=== PATIENT | female | born 1985 | race Caucasian/White ===

== ENCOUNTER 2018-06-15 16:02 | Emergency (ER) | payer OTHER ==
[2018-06-15 16:25] VITALS: BP 180/110; PULSE 88; O2SAT 99
[2018-06-15] MEDS ORDERED: TORAdol 30 mg Injection IM ONE (16:40)
[2018-06-15] MEDS ORDERED: TORAdol 30 mg Injection ONE (16:43)
--- NOTE | 2018-06-15 16:45 | ERPHSYRPT ---
- History of Present Illness Time Seen by Provider: 06/15/18 16:36 Source: patient Exam Limitations: no limitations Patient Subjective Stated Complaint: staes her car door closed on her hand after the wind blew it shut pain in left hand Triage Nursing Assessment: alert and oriented.. pain in left hand after car door closed on it prior to arrival. + swelling noted. + radial pulse present. pain with movement of fingers Physician History: This is a 33-year-old white female she arrives with complaint of pain in her left hand symptoms since 3:35 this afternoon. According to the patient, the wind blew her car door and it struck her on the left hand. Patient is complaining of pain in her left hand. Past medical history includes abnormal uterine bleeding, anxiety, bipolar depression, mitral valve prolapse Past surgical history includes hysterectomy, tubal ligation Occurred: just prior to arrival (15:45) Extremities Pain Location: hand: left Modifying Factors: Improves With: nothing Associated Symptoms: none Allergies/Adverse Reactions: butorphanol tartrate [From Stadol] Allergy (Unknown, Verified 12/05/15 21:23) Hives tramadol Allergy (Unknown, Verified 12/05/15 21:23) Itching Home Medications: Acyclovir 400 mg PO DAILY 11/05/13 [History] Topiramate [Topamax] 200 mg PO DAILY 11/05/13 [History] Vilazodone Hydrochloride [Viibryd] 40 mg PO DAILY 08/26/15 [History] Nadolol 20 mg [Corgard 20 MG] 20 mg PO BID 12/05/15 [History] Hx Tetanus, Diphtheria Vaccination/Date Given: No Hx Influenza Vaccination/Date Given: No Hx Pneumococcal Vaccination/Date Given: No Immunizations Up to Date: (unknown) - Review of Systems Constitutional: No Fever, No Chills Eyes: No Symptoms Ears, Nose, & Throat: No Symptoms Respiratory: No Cough, No Dyspnea Cardiac: No Chest Pain, No Edema, No Syncope Abdominal/Gastrointestinal: No Abdominal Pain, No Nausea, No Vomiting, No Diarrhea Genitourinary Symptoms: No Dysuria Musculoskeletal: Other (left hand pain) Skin: No Rash Neurological: No Dizziness, No Focal Weakness, No Sensory Changes Psychological: No Symptoms Endocrine: No Symptoms All Other Systems: Reviewed and Negative - Past Medical History Pertinent Past Medical History: Yes Neurological History: Migraines ENT History: No Pertinent History Cardiac History: Other Respiratory History: No Pertinent History Endocrine Medical History: No Pertinent History Musculoskeletal History: No Pertinent History GI Medical History: Other History: No Pertinent History Psycho-Social History: Anxiety, Bipolar, Depression Female Reproductive Disorders: Abnormal Uterine Bleeding Other Medical History: mitral valve prolaspe - Past Surgical History Past Surgical History: Yes Neuro Surgical History: No Pertinent History Cardiac: No Pertinent History Respiratory: No Pertinent History Gastrointestinal: No Pertinent History Genitourinary: No Pertinent History Musculoskeletal: No Pertinent History Female Surgical History: Hysterectomy, Tubal Ligation - Social History Smoking Status: Current every day smoker How long have you smoked: 6 Exposure to second hand smoke: Yes Drug Use: none Patient Lives Alone: No - Female History Hx Now: No - Nursing Vital Signs Nursing Vital Signs: Initial Vital Signs Temperature 98 F 06/15/18 16:16 Pulse Rate 88 06/15/18 16:16 Respiratory Rate 18 06/15/18 16:16 Blood Pressure 180/110 06/15/18 16:16 O2 Sat by Pulse Oximetry 99 06/15/18 16:16 Pain Scale Pain Intensity 7 - Physical Exam General Appearance: mild distress Eyes, Ears, Nose, Throat Exam: moist mucous membranes Neck Exam: non-tender, supple Cardiovascular/Respiratory Exam: chest non-tender, normal breath sounds, regular rate/rhythm, no respiratory distress Abdominal Exam: non-tender, No guarding Back Exam: normal inspection, No vertebral tenderness Shoulder Exam: normal inspection, non-tender, no evidence of injury, normal ROM Elbow/Forearm Exam: normal inspection, non-tender, no evidence of injury, normal ROM Wrist Exam: normal inspection, non-tender, no evidence of injury Hand Exam: No normal inspection (left hand tender with palpation, decreased range of motion secondary to pain, good capillary refill left fingers, sensation intact left fingers) Neuro/Tendon Exam: normal sensation, normal motor functions Mental Status Exam: alert, oriented x 3, cooperative Skin Exam: normal color, warm, dry SpO2 Interpretation: normal (99%), No borderline oxygenation SpO2: 99 Oxygen Delivery: Room Air - Course Nursing assessment & vital signs reviewed: Yes - Radiology Exams Left Hand X-ray Interpretation: Interpreted by me, Negative, No Fracture, No Subluxation Ordered Tests: Active Orders 24 hr Category Date Time Status Splint STAT Care 06/15/18 17:10 Active HAND (MINIMUM 3 VIEWS) Stat Exams 06/15/18 16:40 Taken Medication Summary Discontinued Medications Generic Name Dose Route Start Last Admin Trade Name Damian PRN Reason Stop Dose Admin Ketorolac Tromethamine 60 mg 06/15/18 16:40 06/15/18 16:44 Toradol 30 Mg Injection IM 06/15/18 16:41 60 mg STAT ONE Administration Ketorolac Tromethamine Confirm 06/15/18 16:43 Toradol 30 Mg Injection Administered 06/15/18 16:44 Dose 60 mg .ROUTE .STK-MED ONE - Progress Progress: improved Progress Note: 06/15/18 17:11 This is a 33-year-old white female who arrives with complaint of pain in her left dorsal hand symptoms since the wind blew her car door closed on her hand at approximately 3:30 this afternoon. Patient has pain with movement of her left hand pain with movement of her left fingers located overlying her left dorsal hand. She has good capillary refill to all her fingers sensation intact to all of her fingers. I do not see obvious bruising or abrasion. Patient's x-ray of her left hand is negative. Patient received Toradol 60 mg IM. She will be placed in the left wrist splint to stabilize her left hand she is to return home Tylenol every 4 hours or Motrin every 6 hours as needed for pain. Cold packs to area 24-48 hours. - Departure Time of Disposition: 17:13 Departure Disposition: Home Clinical Impression: Contusion of left hand Qualifiers: Encounter type: initial encounter Qualified Code(s): S60.222A - Contusion of left hand, initial encounter Condition: Fair Critical Care Time: No Referrals: MANE COFFMAN MD [Primary Care Provider] - Instructions: Contusion (DC), Hand Pain (DC) Additional Instructions: Return home. Ice and elevate your left hand 24-48 hours. Advil every 6 hours with food or Tylenol every 4 hours as needed for pain. Follow-up with your family doctor if symptoms are worse, no better in 48 hours, or persist longer than one week. Return for acute distress or for severe symptoms. Your x-rays have been preliminarily read, they will be reread tomorrow. You will be contacted if any discrepancies are noted.
--- NOTE | 2018-06-15 22:35 | XRAY ---
Indication: Pain following car door injury. Comparison: None 3 views of the left hand obtained. No bony, articular, or soft tissue abnormalities.
== END 2018-06-15 17:25 | disposition home or self-care (01) ==
LOC: ED 16:02
DX: S60.222A Contusion of left hand, initial encounter (principal); W23.0XXA Caught, crushed, jammed, or pinched between moving objects, initial encounter; Z79.899 Other long term (current) drug therapy
CPT/HCPCS: 73130; 96372; 99283; J1885; L3908

== ENCOUNTER 2019-08-15 06:15 | Emergency (ER) | payer OTHER ==
--- NOTE | 2019-08-15 06:49 | ERPHSYRPT ---
- History of Present Illness Time Seen by Provider: 08/15/19 06:56 Source: patient, family, old records Exam Limitations: no limitations Patient Subjective Stated Complaint: pt arrived in er complaining of headache x24 hours. pt is sensitive to light and rates pain as 10/10 at this time. Triage Nursing Assessment: pt is alert and oriented and able to answer all questions. pt is holding head and states pain is 10/10; pt states she has a history of migrianes and taked lamictall daily Physician History: [PT IS A 34 Y/O WOMAN C/O "I HAVE A MIGRAINE." PT REPORTS AMOS THROBBING 10/10 DISCOMFORT UNRESPONSIVE TO LAMICTAL AND IBUPROFEN. + NAUSEA + PHOTOPHOBIA NO CP/ SOB/V/FEVER/CHILLS/DYSURIA/STIFF NECK/VISUAL CHANGES/DYSARTHRIA/AMS/UNILATERAL WEAKNESS/DYSURIA/HEMATURIA/VAG BLEED OR DC. REPORTS SIMILAR TO PRIOR MIGRAINES BUT MORE INTENSE. NO FHX CEREBRAL ANEURYSM. NO OTALGIA/DENTALGIA/SINUS TENDERNESS COUGH X 1 WEEK NO SICK CONTACTS NO SORE THROAT PMHX MIGRAINES, DEPRESSION PSHX NAOMI MEDS REVIEWED ALL LIST REVIEWED +TOB +ETOH OCC DENIES ILLICITS FHX NEG CEREBRAL ANEURYSM Allergies/Adverse Reactions: butorphanol tartrate [From Stadol] Allergy (Unknown, Verified 12/05/15 21:23) Hives tramadol Allergy (Unknown, Verified 12/05/15 21:23) Itching acetaminophen [From [place]] Allergy (Verified 08/15/19 06:27) hydrocodone [From [place]] Allergy (Verified 08/15/19 06:27) Home Medications: Bupropion HCl [Wellbutrin Xl] 300 mg PO DAILY 08/15/19 [History] lamoTRIgine [Lamictal] 100 mg PO DAILY 08/15/19 [History] Hx Tetanus, Diphtheria Vaccination/Date Given: No Hx Influenza Vaccination/Date Given: No Hx Pneumococcal Vaccination/Date Given: No - Review of Systems Constitutional: No Symptoms, No Fever, No Chills, No Fatigue, No Lethargy, No Malaise, No Night Sweats, No Weakness, No Weight Loss Eyes: No Symptoms, No Discharge, No Eye Pain, No Eye Redness, No Itchy, No Photophobia, No Tearing, No Vision Changes, No Double Vision, No Foreign Body Sensation Ears, Nose, & Throat: No Symptoms, No Ear Pain, No Ear Discharge, No Hearing Changes, No Tinnitus, No Nose Congestion, No Nose Discharge, No Epistaxis, No Mouth Pain, No Mouth Swelling, No Throat Pain, No Throat Swelling, No Hoarse, No Painful Swallowing, No Stridor Respiratory: No Symptoms, No Cough, No Cyanosis, No Dyspnea, No Dyspnea on Exertion (ONEAL), No Stridor, No Wheezing Cardiac: No Symptoms, No Chest Pain, No Edema, No Palpitations, No Syncope, No Orthopnea Abdominal/Gastrointestinal: No Symptoms, Nausea, No Abdominal Pain, No Vomiting , No Diarrhea, No Constipation, No Hematemesis, No Hematochezia, No Melena, No Dysphagia, No Appetite Changes Genitourinary Symptoms: No Symptoms, No Dysuria, No Frequency, No Hematuria, No Hesitancy, No Incontinence, No Urgency, No Urinary Retention, No Flank Pain, No Menorrhagia, No , No Vaginal Bleeding, No Vaginal Discharge Musculoskeletal: No Symptoms, No Arthralgias, No Back Pain, No Neck Pain, No Deformity, No Fall, No Injury, No Joint Redness, No Joint Pain, No Joint Swelling, No Myalgias Skin: No Symptoms, No Cellulitis, No Decubiti, No Induration, No Pruritis, No Rash, No Skin Lesions, No Dryness Neurological: No Symptoms, Headache, No Dizziness, No Focal Weakness, No Gait Changes, No Irritability, No Lethargy, No Paralysis, No Parasthesia, No Seizure , No Sensory Changes, No Speech Changes, No Tics, No Tremors, No Vertigo Psychological: No Symptoms, No Alcohol Abuse, No Drug Abuse, No Anxiety, No Depression, No Suicidal Ideations, No Homicidal Ideations, No Emotional Lability , No Hallucinations, No Memory Loss, No Mood Changes Endocrine: No Symptoms, No Polyuria, No Polydipsia, No Hair Changes, No Cold Intolerance, No Excessive Sweating, No Goiter Hematologic/Lymphatic: No Symptoms, No Anemia, No Blood Clots, No Easy Bleeding , No Gum Bleeding, No Easy Bruising, No Adenopathy Immunological/Allergic: No Symptoms All Other Systems: Reviewed and Negative - Past Medical History Pertinent Past Medical History: Yes Neurological History: Migraines ENT History: No Pertinent History Cardiac History: Other Respiratory History: No Pertinent History Endocrine Medical History: No Pertinent History Musculoskeletal History: No Pertinent History GI Medical History: Other History: No Pertinent History Psycho-Social History: Depression Female Reproductive Disorders: Abnormal Uterine Bleeding Other Medical History: mvp, migraines, depression - Past Surgical History Past Surgical History: Yes Neuro Surgical History: No Pertinent History Cardiac: No Pertinent History Respiratory: No Pertinent History Gastrointestinal: No Pertinent History Genitourinary: No Pertinent History Musculoskeletal: No Pertinent History Female Surgical History: Hysterectomy, Tubal Ligation - Social History Smoking Status: Current every day smoker How long have you smoked: 9 Exposure to second hand smoke: Yes Drug Use: none Patient Lives Alone: No - Female History Hx Now: No - Nursing Vital Signs Nursing Vital Signs: Initial Vital Signs Temperature 97.7 F 08/15/19 06:32 Pulse Rate 83 08/15/19 06:32 Respiratory Rate 16 08/15/19 06:32 Blood Pressure 175/126 08/15/19 06:32 O2 Sat by Pulse Oximetry 98 08/15/19 06:32 Pain Scale Pain Intensity 8 - Physical Exam General Appearance: no apparent distress, mild distress, alert, other (NO AMOS TEMPORAL TTP ) Eye Exam: PERRL/EOMI, eyes nml inspection, other (fundi normal amos), No scleral icterus, No pale conjunctivae, No photophobia, No EOM palsy/anisocoria Ears, Nose, Throat Exam: normal ENT inspection, TMs normal, pharynx normal, TM abnormal (L), other (uvula midline, floor of mouth soft), No moist mucous membranes, No dry mucous membranes, No TM abnormal (R), No pharyngeal erythema, No tonsillar exudate Neck Exam: normal inspection, non-tender, supple, full range of motion, No meningismus, No mass, No Brudzinski, No Kernig's, No carotid bruit, No JVD, No limited range of motion, No lymphadenopathy, No midline tenderness, No thyromegaly Respiratory Exam: normal breath sounds, lungs clear, airway intact, No chest tenderness, No respiratory distress, No diminished breath sounds, No accessory muscle use, No prolonged expirations, No crackles/rales, No rhonchi, No wheezing , No stridor, No pleural rub Cardiovascular Exam: regular rate/rhythm, normal heart sounds, normal peripheral pulses, capillary refill <2 sec, No murmur, No friction rub, No gallop, No tachycardia, No bradycardia, No irregular, No capillary refill 2-3 sec, No capillary refill >3 sec, No edema, No pulse deficit Gastrointestinal/Abdomen Exam: soft, normal bowel sounds, No tenderness, No distention, No mass, No guarding, No ecchymosis, No pulsatile mass, No rebound, No hernia, No hepatomegaly, No organomegaly, No splenomegaly, No bruit Pelvic Exam: normal external exam Rectal Exam: deferred Back Exam: normal inspection, normal range of motion, other (neg slr amos, no sacral anesthesia, dtr 2/4 amos patella), No CVA tenderness, No vertebral tenderness, No rash, No decreased range of motion, No muscle spasm, No point tenderness Extremity Exam: normal inspection, normal range of motion, pelvis stable, No amputations, No contusions, No calf tenderness, No deformities, No lacerations, No parasthesia, No paralysis, No inflammation, No joint swelling, No limited range of motion, No pedal edema, No swelling, No tenderness Neurologic Exam: alert, oriented x 3, cooperative, booth manager II-XII nml as tested, normal mood/affect, nml cerebellar function, nml station & gait, sensation nml, No motor deficits, No sensory deficit, No disoriented, No confusion, No agitation, No uncooperative, No intoxicated appearance, No depressed mood/affect , No motor weakness, No facial droop, No slurred speech, No aphasia, No dysarthria, No abnormal gait, No abnormal cerebellar tests, No abnormal booth manager II- XII, No EOM palsy Skin Exam: normal color, warm, dry, No rash, No petechiae, No jaundice, No abrasion, No cyanosis, No diaphoresis, No decubitus, No embolic lesions, No ecchymosis, No jaundice, No laceration, No mottled, No pale Lymphatic Exam: No adenopathy SpO2 Interpretation: normal SpO2: 98 O2 Delivery: Room Air - Course Nursing assessment & vital signs reviewed: No Ordered Tests: Active Orders 24 hr Category Date Time Status IV Insertion STAT Care 08/15/19 06:52 Active Oxygen-ED Only Nasal Cannula 2 lpm Care 08/15/19 06:52 Active CBC W DIFF Stat Lab 08/15/19 07:00 Completed CMP Stat Lab 08/15/19 07:00 Completed ESR [Erythrocyte Sedimentation Rate] Stat Lab 08/15/19 06:58 Completed HCG QUALITATIVE,SERUM Stat Lab 08/15/19 07:00 Completed UA W/RFX UR CULTURE Stat Lab 08/15/19 08:20 Completed Medication Summary Discontinued Medications Generic Name Dose Route Start Last Admin Trade Name Candelarioq PRN Reason Stop Dose Admin Dexamethasone Sodium Phosphate 10 mg 08/15/19 06:55 08/15/19 07:39 Decadron 10mg Inj. IV 08/15/19 06:56 10 mg STAT ONE Administration Dexamethasone Sodium Phosphate Confirm 08/15/19 07:36 Decadron 10mg Inj. Administered 08/15/19 07:37 Dose 10 mg .ROUTE .STK-MED ONE Sodium Chloride 1,000 mls @ 999 mls/hr 08/15/19 06:52 08/15/19 07:40 Sodium Chloride 0.9% 1000 Ml IV 08/15/19 07:52 999 mls/hr .Q1H1M STA Administration Metoclopramide HCl 10 mg/ 1,000 mls @ 999 mls/hr 08/15/19 06:56 08/15/19 07: 45 Sodium Chloride IV 08/15/19 07:56 999 mls/hr .Q1H1M STA 999 mls/hr Administration Sodium Chloride Confirm 08/15/19 07:36 Sodium Chloride 0.9% 1000 Ml Administered 08/15/19 07:37 Dose 1,000 mls @ ud .ROUTE .STK-MED ONE Ketorolac Tromethamine 30 mg 08/15/19 06:52 08/15/19 07:39 Toradol 30 Mg Injection IV 08/15/19 06:53 30 mg STAT ONE Administration Ketorolac Tromethamine Confirm 08/15/19 07:35 Toradol 30 Mg Injection Administered 08/15/19 07:36 Dose 30 mg .ROUTE .STK-MED ONE Lab/Rad Data: Laboratory Result Diagrams 08/15/19 07:00 08/15/19 07:00 Laboratory Results 08/15/19 08/15/19 08/15/19 Range/Units 08:20 07:00 07:00 WBC (4.0-10.5) K/mm3 RBC (4.1-5.4) M/mm3 Hgb (12.0-16.0) gm/dl Hct (35-47) % MCV (78-100) fl MCH (26-32) pg MCHC (32-36) g/dl RDW (11.5-14.0) % Plt Count (150-450) K/mm3 MPV (6-9.5) fl Gran % (36.0-66.0) % Eos # (Auto) (0-0.5) Absolute Lymphs (auto) (1.0-4.6) Absolute Monos (auto) (0.0-1.3) Lymphocytes % (24.0-44.0) % Monocytes % (0.0-12.0) % Eosinophils % (0.00-5.0) % Basophils % (0.0-0.4) % Absolute Granulocytes (1.4-6.9) Basophils # (0-0.4) ESR (0-20) mm/hr Sodium 143 (137-145) mmol/L Potassium 4.1 (3.5-5.1) mmol/L Chloride 105 (98-107) mmol/L Carbon Dioxide 30 (22-30) mmol/L Anion Gap 12.2 (5-15) MEQ/L BUN 12 (7-17) mg/dL Creatinine 0.74 (0.52-1.04) mg/dL Estimated GFR > 60.0 ML/MIN Glucose 90 (74-106) mg/dL Calcium 9.9 (8.4-10.2) mg/dL Total Bilirubin 0.50 (0.2-1.3) mg/dL AST 24 (14-36) U/L ALT 18 (0-35) U/L Alkaline Phosphatase 72 (38-126) U/L Serum Total Protein 6.8 (6.3-8.2) g/dL Albumin 4.3 (3.5-5.0) g/dL Serum , Qual NEGATIVE (Negative) Urine Color YELLOW (YELLOW) Urine Appearance CLEAR (CLEAR) Urine pH 7.0 (5-6) Ur Specific [place] 1.009 (1.005-1.025) Urine Protein NEGATIVE (Negative) Urine Ketones NEGATIVE (NEGATIVE) Urine Blood NEGATIVE (0-5) Gui/ul Urine Nitrite NEGATIVE (NEGATIVE) Urine Bilirubin NEGATIVE (NEGATIVE) Urine Urobilinogen NEGATIVE (0-1) mg/dL Ur Leukocyte Esterase NEGATIVE (NEGATIVE) Urine WBC (Auto) NONE (0-5) /HPF Urine RBC (Auto) NONE (0-2) /HPF U Epithel Cells (Auto) NONE (FEW) /HPF Urine Bacteria (Auto) NONE (NEGATIVE) /HPF Urine Culture Reflexed NO (NO) Urine Glucose NEGATIVE (NEGATIVE) mg/dL 08/15/19 08/15/19 Range/Units 07:00 06:58 WBC 6.0 (4.0-10.5) K/mm3 RBC 4.50 (4.1-5.4) M/mm3 Hgb 15.0 (12.0-16.0) gm/dl Hct 42.6 (35-47) % MCV 94.7 (78-100) fl MCH 33.3 H (26-32) pg MCHC 35.2 (32-36) g/dl RDW 11.7 (11.5-14.0) % Plt Count 199 (150-450) K/mm3 MPV 10.3 H (6-9.5) fl Gran % 39.8 (36.0-66.0) % Eos # (Auto) 0.19 (0-0.5) Absolute Lymphs (auto) 2.90 (1.0-4.6) Absolute Monos (auto) 0.51 (0.0-1.3) Lymphocytes % 48.3 H (24.0-44.0) % Monocytes % 8.5 (0.0-12.0) % Eosinophils % 3.2 (0.00-5.0) % Basophils % 0.2 (0.0-0.4) % Absolute Granulocytes 2.40 (1.4-6.9) Basophils # 0.01 (0-0.4) ESR 3 (0-20) mm/hr Sodium (137-145) mmol/L Potassium (3.5-5.1) mmol/L Chloride (98-107) mmol/L Carbon Dioxide (22-30) mmol/L Anion Gap (5-15) MEQ/L BUN (7-17) mg/dL Creatinine (0.52-1.04) mg/dL Estimated GFR ML/MIN Glucose (74-106) mg/dL Calcium (8.4-10.2) mg/dL Total Bilirubin (0.2-1.3) mg/dL AST (14-36) U/L ALT (0-35) U/L Alkaline Phosphatase (38-126) U/L Serum Total Protein (6.3-8.2) g/dL Albumin (3.5-5.0) g/dL Serum , Qual (Negative) Urine Color (YELLOW) Urine Appearance (CLEAR) Urine pH (5-6) Ur Specific [place] (1.005-1.025) Urine Protein (Negative) Urine Ketones (NEGATIVE) Urine Blood (0-5) Gui/ul Urine Nitrite (NEGATIVE) Urine Bilirubin (NEGATIVE) Urine Urobilinogen (0-1) mg/dL Ur Leukocyte Esterase (NEGATIVE) Urine WBC (Auto) (0-5) /HPF Urine RBC (Auto) (0-2) /HPF U Epithel Cells (Auto) (FEW) /HPF Urine Bacteria (Auto) (NEGATIVE) /HPF Urine Culture Reflexed (NO) Urine Glucose (NEGATIVE) mg/dL - Progress Progress: improved Progress Note: 08/15/19 08:12 [facility] RESOLVED AWAIT UA AND ESR FINDINGS REVIEWED WITH PT PLAN DC WITH FUP ALL QUESTIONS ANSWERED TO PT SATISFACTION 08/15/19 08:33 UA NEG WILL DC WITH FUP Counseled pt/family regarding: drug and/or alcohol abuse, lab results, diagnosis , need for follow-up, rad results, smoking cessation - Departure Departure Disposition: Home Clinical Impression: Migraine Condition: Good Critical Care Time: No Referrals: MANE COFFMAN MD [Primary Care Provider] - Instructions: Headache, Adult (DC) Additional Instructions: TO ER IF UNILATERAL WEAKNESS, VISUAL CHANGES, SPEECH CHANGES, ALTERATION IN MENTAL STATUS, FEVER OVER 102, INTRACTABLE VOMITING MOTRIN FOR DISCOMFORT DRINK PLENTY OF FLUIDS YOU MAY RETURN TO WORK PLEASE FOLLOW UP WITH YOUR DOCTOR IN 2-3 DAYS FOR RE-EVALUATION AND DEFINITIVE CARE
[2019-08-15] MEDS ORDERED: Sodium Chloride 0.9% 1000 ML 1,000 ML IV STA (06:52)
[2019-08-15] MEDS ORDERED: TORAdol 30 mg Injection IV ONE (06:52)
[2019-08-15] MEDS ORDERED: DECADRON 10MG INJ. IV ONE (06:55)
[2019-08-15] MEDS ORDERED: REGLAN IV STA (06:56)
[2019-08-15] MEDS ORDERED: SODIUM CHLORIDE 0.9% IV STA (06:56)
[2019-08-15 07:15] LABS: BASOPHIL % 0.2 % (0.0-0.4); Basophil (Absolute #) 0.01 (0-0.4); Eosinophil % 3.2 % (0.00-5.0); Eosinophil (Absolute #) 0.19 (0-0.5); Hematocrit 42.6 % (35-47); Lymphocytes % 48.3 % (24.0-44.0); Mean Cell Volume 94.7 fl (78-100); Mean Corpuscular Hemoglobin 33.3 pg (26-32); Mean Corpuscular Hgb Concent. 35.2 g/dl (32-36); Mean Platelet Volume 10.3 fl (6-9.5); Monocyte (Absolute #) 0.51 (0.0-1.3); Monocytes % 8.5 % (0.0-12.0); Neutrophil % 39.8 % (36.0-66.0); Platelet Count 199 K/mm3 (150-450); Red Cell Distribution Width 11.7 % (11.5-14.0)
[2019-08-15] MEDS ORDERED: TORAdol 30 mg Injection ONE (07:35)
[2019-08-15] MEDS ORDERED: Sodium Chloride 0.9% 1000 ML 1,000 ML ONE (07:36)
[2019-08-15] MEDS ORDERED: DECADRON 10MG INJ. ONE (07:36)
[2019-08-15 07:53] LABS: ALBUMIN 4.3 g/dL (3.5-5.0); ALKALINE PHOSPHATASE 72 U/L (38-126); ANION GAP 12.2 MEQ/L (5-15); BLOOD UREA NITROGEN 12 mg/dL (7-17); CHLORIDE 105 mmol/L (98-107); Calcium 9.9 mg/dL (8.4-10.2); Carbon Dioxide 30 mmol/L (22-30); Creatinine 1 0.74 mg/dL (0.52-1.04); Glucose 90 mg/dL (74-106); Potassium 4.1 mmol/L (3.5-5.1); SGOT/AST 24 U/L (14-36); SGPT/ALT 18 U/L (0-35); SODIUM 143 mmol/L (137-145); Total Protein 6.8 g/dL (6.3-8.2)
[2019-08-15 08:27] LABS: Appearance CLEAR (CLEAR); Bilirubin NEGATIVE (NEGATIVE); Blood NEGATIVE Ery/ul (0-5); Glucose NEGATIVE (NEGATIVE); Ketones NEGATIVE (NEGATIVE); Leukocyte Esterase NEGATIVE (NEGATIVE); Nitrite NEGATIVE (NEGATIVE); Protein,Urine Dip NEGATIVE (Negative); Specific Gravity 1.009 (1.005-1.025); Urobilinogen NEGATIVE mg/dL (0-1)
[2019-08-15 08:52] VITALS: BP 122/84; PULSE 68; O2SAT 100
== END 2019-08-15 08:56 | disposition home or self-care (01) ==
LOC: ED 06:15
DX: G43.909 Migraine, unspecified, not intractable, without status migrainosus (principal)
CPT/HCPCS: 36000; 36415; 80053; 81001; 81025; 85025; 85652; 96360; 96365; 96374; 96375; 99284; J1100; J1885

== ENCOUNTER 2024-06-05 15:35 | Emergency (ER) | payer BC, OTHER ==
[2024-06-05 15:56] VITALS: TEMP 97
--- NOTE | 2024-06-05 16:05 | ERPHSYRPT ---
- History of Present Illness Time Seen by Provider: 06/05/24 16:05 Source: patient Exam Limitations: no limitations Patient Subjective Stated Complaint: pt here for headache for 3 days now with lips numb and a sound in ears. she had tyenol and zofran yesterday. Triage Nursing Assessment: pt sent from clinic alert, oriented, texting on phone, resp easy. skin w/d/p. moves all ext well, no edema noted Physician History: This is a 39-year-old white female patient of Dr. Small who presents by private vehicle secondary to migraine headache is been present for 3 days despite the use of Toradol injectable. She took Tylenol and Zofran yesterday without much benefit. Patient has a history of migraine headaches and primarily it is the left side of her head which she states is the location of her pain. She states that it aches and throbs. She denies visual changes. Patient went to the outpatient clinic to be evaluated. Because of the patient's very high blood pressure, patient was sent to the emergency department. Patient does not take any medications for high blood pressure. Patient also had symptoms of lip numbness and sounds in her ears. Her systolic blood pressure here in the emergency department is initially 190s. Patient has a history of chronic migraine headaches anxiety/depression. She did not suffer any acute trauma to her head. Timing/Duration: day(s) (3), worse Quality: aching, stabbing Head Pain Location: temporal Severity of Pain-Max: moderate Severity of Pain-Current: moderate Recent Head Trauma: no recent headache/trauma, frequent headaches, chronic headaches Modifying Factors: Improves With: noise Associated Symptoms: other (Sounds in both of her ears and lip numbness), No confusion, No dizziness, No fatigue, No fever/chills, No light-headedness, No loss of consciousness, No nausea/vomiting, No sensitive to light, No visual disturbance Previous symptoms: same symptoms as today, recently treated (In her doctor's office with an injectable Toradol medication) Allergies/Adverse Reactions: butorphanol tartrate [From Stadol] Allergy (Unknown, Verified 06/05/24 15:37) Hives tramadol Allergy (Unknown, Verified 06/05/24 15:37) Itching acetaminophen [From [place]] Allergy (Verified 06/05/24 15:37) hydrocodone [From [place]] Allergy (Verified 06/05/24 15:37) Home Medications: buPROPion HCL [Wellbutrin Xl] 300 mg PO DAILY 08/15/19 [History] lamoTRIgine [Lamictal] 100 mg PO DAILY 08/15/19 [History] Hx Tetanus, Diphtheria Vaccination/Date Given: No Hx Influenza Vaccination/Date Given: No Hx Pneumococcal Vaccination/Date Given: No Immunizations Up to Date: Yes Travel Risk - International Travel Have you traveled outside of the country in past 3 weeks: No - Emerging Infectious Disease Are you exhibiting symptoms associated with any current EIDs: Yes Symptoms: Headaches/Body Aches/ - Review of Systems Constitutional: No Symptoms Eyes: No Symptoms Ears, Nose, & Throat: No Symptoms Respiratory: No Symptoms Cardiac: No Symptoms Abdominal/Gastrointestinal: No Symptoms Genitourinary Symptoms: No Symptoms Musculoskeletal: No Symptoms Skin: No Symptoms Neurological: Headache, Parasthesia (Around her lips) Psychological: No Symptoms Endocrine: No Symptoms Hematologic/Lymphatic: No Symptoms Immunological/Allergic: No Symptoms All Other Systems: Reviewed and Negative - Past Medical History Pertinent Past Medical History: Yes Neurological History: Migraines ENT History: No Pertinent History Cardiac History: Other Respiratory History: No Pertinent History Endocrine Medical History: No Pertinent History Musculoskeletal History: No Pertinent History GI Medical History: Other History: No Pertinent History Psycho-Social History: Depression Female Reproductive Disorders: Abnormal Uterine Bleeding Other Medical History: mvp, migraines, depression,skin issues - Past Surgical History Past Surgical History: Yes Neuro Surgical History: No Pertinent History Cardiac: No Pertinent History Respiratory: No Pertinent History Gastrointestinal: No Pertinent History Genitourinary: No Pertinent History Musculoskeletal: No Pertinent History Female Surgical History: Hysterectomy, Tubal Ligation - Female History Hx Last Menstrual Period: post Hx Now: No - Social History Smoking Status: Former smoker How long have you smoked: 9 Exposure to second hand smoke: Yes Drug Use: none Patient Lives Alone: No - Social Determinants of Health Will the patient participate in the screening: Yes Do you worry about a steady place to live?: No Do you have any problems with any of the following?: No known problems In the past 12 months,have you had to go without utilities?: No Transportation Issues: No Has anyone in your support network made you feel unsafe?: No Have you or anyone in your house had to go without enough: No - Nursing Vital Signs Nursing Vital Signs: Initial Vital Signs Blood Pressure 146/74 06/05/24 15:31 O2 Sat by Pulse Oximetry 96 06/05/24 15:31 Pain Scale Pain Intensity 2 - Physical Exam General Appearance: mild distress, alert, anxiety, thin Eye Exam: PERRL/EOMI, eyes nml inspection Ears, Nose, Throat Exam: normal ENT inspection, moist mucous membranes Neck Exam: normal inspection, non-tender, supple, full range of motion Respiratory Exam: normal breath sounds, lungs clear, No chest tenderness, No respiratory distress Cardiovascular Exam: regular rate/rhythm, normal heart sounds, normal peripheral pulses Gastrointestinal/Abdominal Exam: soft, normal bowel sounds, No tenderness Back Exam: normal inspection, normal range of motion, No CVA tenderness, No vertebral tenderness Extremity Exam: normal inspection, normal range of motion, pelvis stable Mental Status Exam: alert, oriented x 3, cooperative strategic business development Exam: normal hearing, normal speech, PERRL, tongue midline Coordination/Gait Exam: normal gait, normal cerebellar function Motor/Sensory Exam: no motor deficit, no sensory deficit Skin Exam: normal color, warm, dry Lymphatic Exam: No adenopathy SpO2 Interpretation: normal SpO2: 100 O2 Delivery: Room Air - Course Nursing assessment & vital signs reviewed: Yes EKG Interpreted by Me: RATE (77), Sinus Rhythm, NORMAL AXIS, NORMAL INTERVALS, NORMAL QRS, Other (No acute ischemic changes on today's twelve-lead EKG.) Ordered Tests: Active Orders 24 hr Category Date Time Status Licensed Acupuncturist STAT Care 06/05/24 16:25 Active IV Insertion STAT Care 06/05/24 16:25 Active Pulse Oximetry (ED) STAT Care 06/05/24 16:25 Active HEAD WITHOUT CONTRAST [CT] Stat Exams 06/05/24 16:25 Taken CBC W DIFF Stat Lab 06/05/24 16:00 Completed CMP Stat Lab 06/05/24 16:40 Completed HCG QUALITATIVE, SERUM Stat Lab 06/05/24 16:40 Completed UA W/RFX UR CULTURE Stat Lab 06/05/24 16:57 Completed Medication Summary Generic Name Dose Route Start Last Admin Trade Name Freq PRN Reason Stop Dose Admin Sodium Chloride 1,000 mls @ 100 mls/hr 06/05/24 16:30 06/05/24 16:53 Sodium Chloride 0.9% 1000 Ml IV 07/05/24 16:29 100 mls/hr .Q10H CLARITZA Administration Discontinued Medications Generic Name Dose Route Start Last Admin Trade Name Damian PRN Reason Stop Dose Admin Diphenhydramine HCl 25 mg 06/05/24 16:25 06/05/24 16:57 Diphenhydramine Hcl 50 Mg/Ml Vial IV 06/05/24 16:26 25 mg STAT ONE Administration Diphenhydramine HCl Confirm 06/05/24 16:36 Diphenhydramine Hcl 50 Mg/Ml Vial Administered 06/05/24 16:37 Dose 50 mg .ROUTE .STK-MED ONE Hydromorphone HCl 0.5 mg 06/05/24 16:25 06/05/24 16:58 Hydromorphone 1 Mg/1ml Inj IV 06/05/24 16:26 0.5 mg STAT ONE Administration Hydromorphone HCl Confirm 06/05/24 16:37 Hydromorphone 1 Mg/1ml Inj Administered 06/05/24 16:38 Dose 1 mg .ROUTE .STK-MED ONE Labetalol HCl 10 mg 06/05/24 16:26 06/05/24 16:59 Labetalol Hcl 20 Mg/4 Ml Disp.Syringe IV 06/05/24 16:27 10 mg STAT ONE Administration Labetalol HCl Confirm 06/05/24 16:38 Labetalol Hcl 20 Mg/4 Ml Disp.Syringe Administered 06/05/24 16:39 Dose 20 mg IV .STK-MED ONE Prochlorperazine Edisylate 5 mg 06/05/24 16:25 06/05/24 16:59 Prochlorperazine Edisylate 10 Mg/2 Ml Vial IV 06/05/24 16:26 5 mg STAT ONE Administration Prochlorperazine Edisylate Confirm 06/05/24 16:37 Prochlorperazine Edisylate 10 Mg/2 Ml Vial Administered 06/05/24 16:38 Dose 10 mg .ROUTE .STK-MED ONE Lab/Rad Data: Laboratory Result Diagrams 06/05/24 16:00 06/05/24 16:40 Laboratory Results 06/05/24 06/05/24 06/05/24 Range/Units 16:57 16:40 16:40 WBC (3.98-10.04) x10^3/uL RBC (3.93-5.22) x10^6/uL Hgb (11.2-15.7) g/dL Hct (34.1-44.9) % MCV (79.4-94.8) fL MCH (25.6-32.2) pg MCHC (32.2-35.5) g/dL RDW (11.7-14.4) % Plt Count (182-369) x10^3/uL MPV (9.4-12.3) fL Gran % (34.0-71.1) % Immature Gran % (Auto) (0.001-0.429) % Nucleat RBC Rel Count (0.00-0.2) % Eos # (Auto) (0.04-0.36) x10^3/uL Immature Gran # (Auto) (0.001-0.031) x10^3u/L Absolute Lymphs (auto) (1.18-3.74) x10^3/uL Absolute Monos (auto) (0.24-0.86) x10^3/uL Absolute Nucleated RBC (0.00-0.012) x10^3u/L Lymphocytes % (19.3-51.7) % Monocytes % (4.7-12.5) % Eosinophils % (0.7-5.8) % Basophils % (0.1-1.2) % Absolute Granulocytes (1.56-6.13) x10^3/uL Basophils # (0.01-0.08) x10^3/uL Sodium 139 (135-145) mmol/L Potassium 4.7 (3.5-5.1) mmol/L Chloride 103 (98-107) mmol/L Carbon Dioxide 26 (22-30) mmol/L Anion Gap 14.8 (5-15) MEQ/L BUN 8 (7-17) mg/dL Creatinine 0.73 (0.52-1.04) mg/dL Estimated GFR 105.9 ML/MIN Glucose 79 (74-106) mg/dL Calcium 9.6 (8.4-10.2) mg/dL Total Bilirubin 0.60 (0.2-1.3) mg/dL AST 22 (14-36) U/L ALT 12 (0-35) U/L Alkaline Phosphatase 73 (38-126) U/L Serum Total Protein 7.2 (6.3-8.2) g/dL Albumin 4.6 (3.5-5.0) g/dL Serum HCG, Qual NEGATIVE (NEGATIVE) Urine Color Yellow (Yellow) Urine Appearance Clear (Clear) Urine pH 5.5 (4.6-8.0) Ur Specific [place] <=1.005 (1.005-1.030) Urine Protein Negative (Negative) Urine Glucose (UA) Negative (Negative) mg/dL Urine Ketones 40 A (Negative) Urine Blood Negative (Negative) Urine Nitrite Negative (Negative) Urine Bilirubin Negative (Negative) Urine Urobilinogen 0.2 (0.2) mg/dL Ur Leukocyte Esterase Negative (Negative) U Hyaline Cast (Auto) NONE SEEN (0-2) /LPF Urine Microscopic RBC 0-2 (0-5) /HPF Urine Microscopic WBC 0-2 (0-5) /HPF Ur Epithelial Cells None Seen (None Seen) /HPF Urine Bacteria None Seen (None Seen) /HPF Urine Culture Reflexed NO (NO) 06/05/24 Range/Units 16:00 WBC 5.5 (3.98-10.04) x10^3/uL RBC 4.42 (3.93-5.22) x10^6/uL Hgb 14.1 (11.2-15.7) g/dL Hct 40.7 (34.1-44.9) % MCV 92.1 (79.4-94.8) fL MCH 31.9 (25.6-32.2) pg MCHC 34.6 (32.2-35.5) g/dL RDW 11.6 L (11.7-14.4) % Plt Count 221 (182-369) x10^3/uL MPV 10.5 (9.4-12.3) fL Gran % 61.5 (34.0-71.1) % Immature Gran % (Auto) 0.0 L (0.001-0.429) % Nucleat RBC Rel Count 0.0 (0.00-0.2) % Eos # (Auto) 0.06 (0.04-0.36) x10^3/uL Immature Gran # (Auto) 0.00 L (0.001-0.031) x10^3u/L Absolute Lymphs (auto) 1.64 (1.18-3.74) x10^3/uL Absolute Monos (auto) 0.39 (0.24-0.86) x10^3/uL Absolute Nucleated RBC 0.00 (0.00-0.012) x10^3u/L Lymphocytes % 29.8 (19.3-51.7) % Monocytes % 7.1 (4.7-12.5) % Eosinophils % 1.1 (0.7-5.8) % Basophils % 0.5 (0.1-1.2) % Absolute Granulocytes 3.38 (1.56-6.13) x10^3/uL Basophils # 0.03 (0.01-0.08) x10^3/uL Sodium (135-145) mmol/L Potassium (3.5-5.1) mmol/L Chloride (98-107) mmol/L Carbon Dioxide (22-30) mmol/L Anion Gap (5-15) MEQ/L BUN (7-17) mg/dL Creatinine (0.52-1.04) mg/dL Estimated GFR ML/MIN Glucose (74-106) mg/dL Calcium (8.4-10.2) mg/dL Total Bilirubin (0.2-1.3) mg/dL AST (14-36) U/L ALT (0-35) U/L Alkaline Phosphatase (38-126) U/L Serum Total Protein (6.3-8.2) g/dL Albumin (3.5-5.0) g/dL Serum HCG, Qual (NEGATIVE) Urine Color (Yellow) Urine Appearance (Clear) Urine pH (4.6-8.0) Ur Specific [place] (1.005-1.030) Urine Protein (Negative) Urine Glucose (UA) (Negative) mg/dL Urine Ketones (Negative) Urine Blood (Negative) Urine Nitrite (Negative) Urine Bilirubin (Negative) Urine Urobilinogen (0.2) mg/dL Ur Leukocyte Esterase (Negative) U Hyaline Cast (Auto) (0-2) /LPF Urine Microscopic RBC (0-5) /HPF Urine Microscopic WBC (0-5) /HPF Ur Epithelial Cells (None Seen) /HPF Urine Bacteria (None Seen) /HPF Urine Culture Reflexed (NO) - Progress Progress: improved, re-examined Air Movement: good Progress Note: 06/05/24 17:05 My medical decision making and the assignment of moderate complexity to this patient's medical issue today is based on review of the patient's past medical history, review of the patient's medication list, review patient drug allergy list, history present illness and physical findings on examination. The workup in this patient includes placement of intravenous line, low rate crystalloid infusion, labetalol, Benadryl, Compazine, Dilaudid, all intravenous injections. Will order CT scan of the head without contrast. Will also order CBC, CMP urinalysis and twelve-lead EKG. Differential diagnosis includes but is not limited to CVA, intracranial bleed, dehydration, urinary tract infection, hypertensive urgency, migraine headache, anxiety 06/05/24 18:50 I interpreted the patient's laboratory data results. Based on the laboratory data results, there are no acute, emergent medical issues. CT scan of the head was interpreted by the radiologist and I reviewed the impression. The impression states no acute intracranial abnormality. No comparisons available. Blood Culture(s) Obtained: No Antibiotics given: No Counseled pt/family regarding: lab results, diagnosis, rad results Medical Desision Making - Independent Historian Additional History obtained from: Mother - Diagnostic Testing Diagnostic test were ordered, analyzed, and reviewed by me: Yes Radiological Interpretation: Reviewed by me, Teleradiologist Report - Risk of complications Low Risk: Low risk of morbidity from additional dx testing or treatment - Departure Departure Disposition: Home Clinical Impression: Migraine headache, Hypertension Condition: Stable Critical Care Time: No Referrals: ESEQUIEL SMALL MD [Primary Care Provider] - Follow up/PCP as directed Additional Instructions: Drink plenty of fluids. Take your medication as prescribed. Call your primary care provider tomorrow, 06/06/2024 to make arrangements for a follow-up appointment to be seen in the next 2 to 3 days. Keep a 3-day (morning noon and night) of your blood pressure on the new medication you are being prescribed. Prescriptions: Hydrochlorothiazide 25 mg [hydroDIURIL 25 MG] 25 mg PO DAILY #10 tablet
[2024-06-05 16:30] LABS: Absolute Neutrophil Ct (ANC) 3.38 x10^3/uL (1.56-6.13); BASOPHIL % 0.5 % (0.1-1.2); Basophil (Absolute #) 0.03 x10^3/uL (0.01-0.08); Eosinophil % 1.1 % (0.7-5.8); Eosinophil (Absolute #) 0.06 x10^3/uL (0.04-0.36); Hematocrit 40.7 % (34.1-44.9); Hemoglobin 14.1 g/dL (11.2-15.7); Lymphocyte (Absolute #) 1.64 x10^3/uL (1.18-3.74); Lymphocytes % 29.8 % (19.3-51.7); Mean Cell Volume 92.1 fL (79.4-94.8); Mean Corpuscular Hemoglobin 31.9 pg (25.6-32.2); Mean Corpuscular Hgb Concent. 34.6 g/dL (32.2-35.5); Mean Platelet Volume 10.5 fL (9.4-12.3); Monocyte (Absolute #) 0.39 x10^3/uL (0.24-0.86); Monocytes % 7.1 % (4.7-12.5); Neutrophil % 61.5 % (34.0-71.1); Platelet Count 221 x10^3/uL (182-369); Red Blood Count 4.42 x10^6/uL (3.93-5.22); Red Cell Distribution Width 11.6 % (11.7-14.4); White Blood Count 5.5 x10^3/uL (3.98-10.04)
[2024-06-05] MEDS ORDERED: BENADRYL 50 MG/ML ONE (16:36)
[2024-06-05] MEDS ORDERED: Hydromorphone 1 mg/ml Injection ONE (16:37)
[2024-06-05] MEDS ORDERED: Compazine 10 MG/2 ML ONE (16:37)
[2024-06-05] MEDS ORDERED: Sodium Chloride 0.9% 1000 ML 1,000 ML ONE (16:38)
[2024-06-05] MEDS ORDERED: TRANDATE 20 MG/4 ML SYRINGE IV ONE (16:38)
[2024-06-05] MEDS: Sodium Chloride 0.9% 1000 ML 1,000 ML IV SCH (16:53)
[2024-06-05 16:57] LABS: ALBUMIN 4.6 g/dL (3.5-5.0); ANION GAP 14.8 MEQ/L (5-15); BILIRUBIN,TOTAL 0.6 mg/dL (0.2-1.3); Calcium 9.6 mg/dL (8.4-10.2); Creatinine 1 0.73 mg/dL (0.52-1.04); EST GLOMERULAR FILTRATION RATE 105.9 ML/MIN; Potassium 4.7 mmol/L (3.5-5.1); Total Protein 7.2 g/dL (6.3-8.2)
[2024-06-05] MEDS: BENADRYL 50 MG/ML IV ONE (16:57)
[2024-06-05] MEDS: Hydromorphone 1 mg/ml Injection IV ONE (16:58)
[2024-06-05] MEDS: Compazine 10 MG/2 ML IV ONE (16:59)
[2024-06-05] MEDS: TRANDATE 20 MG/4 ML SYRINGE IV ONE (16:59)
[2024-06-05 17:08] LABS: Appearance Clear (Clear); Bacteria None Seen /HPF (None Seen); Bilirubin Negative (Negative); Blood Negative (Negative); Epithelial Cells None Seen /HPF (None Seen); Glucose, Urine Negative (Negative); Hyaline Casts NONE SEEN /LPF (0-2); Ketones 40 (Negative); Leukocyte Esterase Negative (Negative); Nitrite Negative (Negative); Ph 5.5 (4.6-8.0); Protein,Urine Dip Negative (Negative); RBC 0-2 /HPF (0-5); Specific Gravity <=1.005 (1.005-1.030); Urobilinogen 0.2 mg/dL (0.2); WBC 0-2 /HPF (0-5)
[2024-06-05 17:14] LABS: HCG SERUM TEST NEGATIVE (NEGATIVE)
[2024-06-05 17:15] LABS: ADD URINE CULTURE? NO (NO)
[2024-06-05 18:52] VITALS: O2SAT 100
[2024-06-05 19:03] VITALS: BP 132/94; PULSE 76; RESP 16
--- NOTE | 2024-06-06 08:32 | XRAY ---
Indication: Severe left headache. Multiple contiguous axial images obtained through the head without contrast. Comparison: None Normal appearing brain parenchyma, ventricles, and bony calvarium. Visualized paranasal sinuses and mastoid air cells are clear. Impression: Normal CT head without contrast exam.
== END 2024-06-05 19:03 | disposition home or self-care (01) ==
LOC: ED 15:35
DX: G43.909 Migraine, unspecified, not intractable, without status migrainosus (principal); I10 Essential (primary) hypertension; Z79.899 Other long term (current) drug therapy
CPT/HCPCS: 36000; 36415; 70450; 80053; 81001; 84703; 85025; 93041; 94760; 96374; 96375; 99284; J1170; J1200